=== PATIENT | female | born 1965 | race Caucasian/White ===

== ENCOUNTER 2020-10-08 04:00 | Outpatient (CLI) | payer MEDICAID, SELFPAY ==
--- NOTE | 2020-10-08 | DI.US_ITS ---
EXAM: MG MAMMO DIAGNOSTIC BI and U/S breast RT limited CLINICAL HISTORY: RT BREAST LUMP, DIAGNOSTIC. TECHNIQUE: Craniocaudal and mediolateral oblique Full Field Digital Mammography views with Computer Aided Diagnosis followed by Tomosynthesis and right breast ultrasound. COMPARISON: Priors are not available at this time for comparison. Should they become available, the y may be submitted and an addendum will be issued at that time. FINDINGS: Mammography/Tomosynthesis: Masses/Architectural Distortion: None seen. Microcalcifictions: No suspicious pleomorphic-type are seen. Skin Thickening/Nipple Retraction: None. Right breast US: Echotexture: Normal appearance of the glandular tissue. Shadowing: No suspicious foci. Cyst: None. Solid lesions: None seen. Ductal dilation: None. IMPRESSION: 1. No evidence of malignancy is noted. 2. Unless there is more urgent need, follow-up screening mammography is recommended, as per [employer] guidelines. 3. The findings were discussed with the patient on the date of the examination. BI-RADS Category 1 - Negative Breast Density - Category C - Heterogeneously dense The mammogram demonstrates the patient's breast tissue is dense. Dense breast tissue is very common a nd is not abnormal but dense breast tissue can make it harder to find cancer on a mammogram. Also, de nse breast tissue may increase their breast cancer risk. This information about the [facility] the [facility] was provided to the patient to raise their awareness. Use this report when you speak wi th the patient about their risks for breast cancer, which includes their family history. At that time , you may recommend for more screening tests (Ultrasound or MRI) as they might be useful based on the ir risk. A negative radiographic report should not delay biopsy if a dominant or clinically suspicious mass is present. Up to ten percent of cancers are not identified on mammography. A negative report may reinforce clinical impression. Adenosis and dense breasts may obscure an underlying neoplasm. False positive reports average 6 to 10%. Patient will receive a letter notifying them of these results.
== END 2020-10-08 04:20 ==
PROVIDERS: PCP Registered Nurse Lactation Consultant
DX: N63.10 Unspecified lump in the right breast, unspecified quadrant (principal)
CPT/HCPCS: 76642; 77062; 77066; G0279

== ENCOUNTER 2022-01-02 17:21 | Outpatient (REF) | payer MEDICAID, SELFPAY ==
[2022-01-02 21:16] LABS: Abs Immature Grans 0.01 10^3/uL (0.0-0.06); Absolute Basophil Count 0.02 10^3/uL (0.0-0.2); Absolute Eosinophil Count 0.03 10^3/uL (0.0-0.7); Absolute Monocyte Count 0.52 10^3/uL (0.1-0.8); Absolute Neutrophil Count 5.12 10^3/uL (1.2-6.7); Basophils % 0.3; Eosinophils % 0.4; HCT 39.1 % (36.0-46.0); HGB 12.7 g/dL (11.2-15.7); Immature Grans % 0.1; MCHC 32.5 % (32.0-36.0); MCV 95.4 fL (80-95); MPV 9.6 fL (8.0-11.0); Monocytes % 6.9; Neutrophils % 68.3; Nucleated RBC 0 %; Platelet Count 271 10^3/uL (130-400)
[2022-01-02 21:34] LABS: ALT 22 U/L (14-59); AST 16 U/L (15-37); Albumin 3.8 g/dL (3.4-5.0); Alkaline Phosphatase 52 U/L (46-116); Anion Gap 10.7 mmol/L (3-11); BUN 14 mg/dL (7-18); Bilirubin, Total 0.6 mg/dL (0.2-1.0); CO2 25.3 mmol/L (21.0-32.0); CREATININE 0.8 mg/dL (0.55-1.02); Calcium 8.6 mg/dL (8.5-10.1); Calculated LDL 148 mg/dL (<100); Chloride 103 mmol/L (98-107); Cholesterol 223 mg/dL (<200); Glucose 88 mg/dL (74-106); HDL Cholesterol 54 mg/dL (40-60); Potassium 3.6 mmol/L (3.5-5.1); Sodium 139 mmol/L (136-145); TSH 1.16 uIU/mL (0.36-3.74); Total Protein 7.3 g/dL (6.4-8.2); Triglyceride 105 mg/dL (<150)
== END 2022-01-02 17:22 | disposition home or self-care (01) ==
LOC: NCHCN 17:21
PROVIDERS: PCP Registered Nurse Lactation Consultant; Visit Provider Nurse Practitioner Family
DX: R55 Syncope and collapse (principal); Z13.220 Encounter for screening for lipoid disorders; Z13.29 Encounter for screening for other suspected endocrine disorder; R79.89 Other specified abnormal findings of blood chemistry
CPT/HCPCS: 80053; 80061; 84443; 85025

== ENCOUNTER 2022-09-22 09:43 | Outpatient (REF) | payer MEDICAID, SELFPAY ==
--- NOTE | 2022-09-22 09:40 | PAPFT_PTH ---
PATIENT: Alla Tompkins LOC: [facility]#:[id number] AGE/SX: 57/F ROOM: RE09/22/[address]: Kisha Hurst : 1965 BED: DIS: 09/22/2022 SPEC #: [id number] RECD: 09/22/22 15:59 STATUS: MATEO REQ #: [id number] WESLEY: 09/22/22 09:[address]: Kisha Hurst DEPT: [facility] Cytology RECD BY: Adrianna Westbrook ENTERED: 09/22/22 16:00 SP TYPE: PAPFT OTHR DR: Adriana Guerrero Tissues: 1 - CX/ENDOCX FOR PAP SMEARS Procedures: PAP THIN PREP/UVM Screening HPV DNA PROBE Comments: [id number]
== END 2022-09-22 09:44 | disposition home or self-care (01) ==
LOC: NCHCN 09:43
PROVIDERS: PCP Registered Nurse Lactation Consultant; Visit Provider Family Medicine
DX: Z00.00 Encounter for general adult medical examination without abnormal findings (principal); Z12.4 Encounter for screening for malignant neoplasm of cervix
CPT/HCPCS: 88142; 87624